=== PATIENT | male | born 1975 | race Two or more races ===

== ENCOUNTER 2017-05-10 22:11 | Emergency (ER) | payer SELFPAY ==
[~2017-05-10] VITALS: Ht 172.7 cm; Wt 83.9 kg
[2017-05-10 22:31] VITALS: BP 139/85
[2017-05-11] MEDS ORDERED: BACLOFEN 10 MG TAB PO ONE (01:30)
[2017-05-11] MEDS ORDERED: IBUPROFEN 600 MG TAB PO ONE (01:30)
== END 2017-05-11 02:19 | disposition home or self-care (01) ==
LOC: ER 22:22
DX: S39.012A Strain of muscle, fascia and tendon of lower back, initial encounter (principal); S46.911A Strain of unspecified muscle, fascia and tendon at shoulder and upper arm level, right arm, initial encounter; V49.49XA Driver injured in collision with other motor vehicles in traffic accident, initial encounter; Y93.89 Activity, other specified; Y99.8 Other external cause status; Y92.410 Unspecified street and highway as the place of occurrence of the external cause